=== PATIENT | male | born 2000 | race Caucasian/White ===

== ENCOUNTER 2018-12-05 11:13 | Emergency (ER) | payer OTHER ==
[2018-12-05 11:27] VITALS: BP 121/85
[2018-12-05] MEDS ORDERED: KETOROLAC TROMETHAMINE 60 MG/2 ML VIAL IM ONE (11:41)
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
== END 2018-12-05 12:01 | disposition home or self-care (01) ==
LOC: ED 11:13
DX: M25.561 Pain in right knee (principal)
CPT/HCPCS: 29530; 96372; 99282; 99283; J1885